=== PATIENT | female | born 1995 | race Two or more races ===

== ENCOUNTER 2018-12-15 05:55 | Inpatient (IN) ==
[2018-12-15] MEDS ORDERED: ONDANSETRON 4 MG/2 ML VIAL IV PRN (06:02)
[2018-12-15] MEDS ORDERED: BUTORPHANOL 2 MG/ML VIAL IV PRN (06:02)
[2018-12-15] MEDS: LACTATED RINGERS 1,000 ML IV SCH ×2 (06:20→10:12)
[2018-12-15 06:25] LABS: Basophils % 0.4 % (0.0-0.8); Eosinophils # 0.2 10*3/uL (0.0-0.87); Eosinophils % 2.6 % (0.00-10.9); Hematocrit 38.8 VOL% (35.7-47.0); Hemoglobin 12.3 GM/DL (12.0-16.0); Immature Granulocytes % 0.6 %; Immature Granulocytes Absolute 0.06 #; Lymphocytes # 1.2 10*3/uL (1.4-4.0); Mean Corpuscular HGB Conc 31.7 GM/DL (32-36); Mean Corpuscular Volume 83.1 FL (87-102); Mean Platelet Volume 11.5 FL (9.6-12.0); Monocytes % 5.3 % (1.7-12.7); Neutrophils % 78.1 % (38.7-73.9); Platelet Count 164 T/CUMM (130-400); Red Blood Count 4.67 MC/CUMM (3.8-5.5); Red Cell Distribution Width 15.3 % (9.3-17.3); White Blood Count 9.4 T/CUMM (4-12)
[2018-12-15 06:44] LABS: Alanine Aminotransferase 12 U/L (13-56); Albumin 2.6 G/DL (3.4-5.0); Alkaline Phosphatase 111 U/L (45-117); Aspartate Amino Transferase 11 U/L (0-37); Bilirubin,Total < 0.39 MG/DL (0.2-1.0); Blood Urea Nitrogen 4 MG/DL (7-18); Estimated Glom Filtration Rate 151 ML/MIN; Glucose 104 MG/DL (74-106); Osmolality,Calculated 275.4 MOS/KG (273-304); Total Protein 6.4 G/DL (6.4-8.3)
[2018-12-15] MEDS: OXYTOCIN/LR 20 UNIT/1,000 ML BAG IV SCH ×2 (07:13→20:05)
[2018-12-15] MEDS ORDERED: OXYTOCIN/LR 20 UNIT/1,000 ML BAG IV SCH (07:30)
[2018-12-15] MEDS ORDERED: CITRIC ACID/SODIUM CITRATE 30 ML UDCUP PO ONE (07:37)
[2018-12-15] MEDS ORDERED: PROMETHAZINE 25 MG/1 ML VIAL IM ONE (07:37)
[2018-12-15] MEDS ORDERED: ONDANSETRON 4 MG/2 ML VIAL IV ONE (07:37)
[2018-12-15] MEDS ORDERED: NALOXONE 0.4 MG/ML VIAL IV PRN (07:37)
[2018-12-15] MEDS ORDERED: FAMOTIDINE 20 MG/2 ML VIAL IV ONE (07:37)
[2018-12-15] MEDS ORDERED: hydrOXYzine HCL 25 MG/1 ML VIAL IM PRN (07:37)
[2018-12-15] MEDS ORDERED: ePHEDrine 50 MG/ML AMP IV PRN (07:37)
[2018-12-15] MEDS ORDERED: diphenhydrAMINE 50 MG/1 ML VIAL IV PRN ×2 (07:37)
[2018-12-15] MEDS ORDERED: fentaNYL 2 MCG/ROPIV 0.2% EPID 100 ML EPIDURAL SCH (08:00)
[2018-12-15 10:48] LABS: Amorphous Crystals,Urine Occasional /HPF (Few); Apearance,Urine CLEAR (Clear); Bilirubin,Urine Negative (Negative); Blood, Urine Negative (Negative); Glucose,Urine (UA) Negative (Negative); Ketones,Urine Negative (Negative); Mucus,Urine Occasional /LPF (Occasional); Nitrite,Urine Negative (Negative); Protein,Urine Negative; RBC,Urine 1 /HPF (0-4); Squamous Epithelial Cell,Urine Occasional /HPF (0-10); Urine Color Straw (Yellow); Urine Specific Gravity 1.009 (1.001-1.035); Urine Urobilinogen < 2.0 EU/DL (0.2-1.0)
[2018-12-15] MEDS ORDERED: CARBOPROST TROMETHAMINE 250 MCG/ML AMP IM ONE (17:03)
[2018-12-15] MEDS ORDERED: BUTORPHANOL 1 MG/ML VIAL ONE (17:03)
[2018-12-15] MEDS ORDERED: METHYLERGONOVINE 0.2 MG/1 ML AMP ONE (17:03)
[2018-12-15] MEDS ORDERED: miSOPROStoL 200 MCG TABLET ONE (17:03)
[2018-12-15] MEDS ORDERED: LIDOCAINE 1% 50 ML VIAL ONE (17:03)
[2018-12-15] MEDS: IBUPROFEN 800 MG TABLET PO PRN (19:32)
[2018-12-15] MEDS ORDERED: BENZOCAINE 20%/MENTHOL 0.5% SPRAY 56 GM CAN TOP PRN (20:35)
[2018-12-15] MEDS ORDERED: oxyCODONE/ACETAMINOPHEN 5-325 MG TABLET PO PRN ×2 (20:50)
[2018-12-15] MEDS ORDERED: oxyCODONE/ACETAMINOPHEN 5-325 MG TABLET ONE (20:55)
[2018-12-15] MEDS ORDERED: KETOROLAC 30 MG/1 ML VIAL IV PRN (22:55)
[2018-12-16 06:08] LABS: Basophils % 0.2 % (0.0-0.8); Hematocrit 27.2 VOL% (35.7-47.0); Hemoglobin 8.7 GM/DL (12.0-16.0); Immature Granulocytes % 0.9 %; Immature Granulocytes Absolute 0.16 #; Lymphocytes # 0.9 10*3/uL (1.4-4.0); Lymphocytes % 4.9 % (21.3-54.2); Mean Corpuscular Volume 82.9 FL (87-102); Mean Platelet Volume 11.5 FL (9.6-12.0); Monocytes % 5.3 % (1.7-12.7); Neutrophils % 88.7 % (38.7-73.9); Platelet Count 141 T/CUMM (130-400); Red Blood Count 3.28 MC/CUMM (3.8-5.5); Red Cell Distribution Width 14.9 % (9.3-17.3); White Blood Count 18.5 T/CUMM (4-12)
[2018-12-16 06:27] LABS: Band Neutrophils 87 % (0-10); Eosinophils 2 % (0-10); Lymphocytes 6 % (20-55); Total Cells Counted 100
[2018-12-16 06:28] LABS: Anisocytosis 1+; Hypochromasia 1+; Platelet Estimate Adequate; Polychromasia 1+
[2018-12-16 06:30] LABS: Amorphous Crystals,Urine Occasional /HPF (Few); Apearance,Urine CLEAR (Clear); Bilirubin,Urine Negative (Negative); Blood, Urine Small mg/dL (Negative); Glucose,Urine (UA) Negative (Negative); Ketones,Urine Negative (Negative); Mucus,Urine Occasional /LPF (Occasional); Nitrite,Urine Negative (Negative); Protein,Urine Negative; RBC,Urine 18 /HPF (0-4); Squamous Epithelial Cell,Urine Occasional /HPF (0-10); Urine Color Yellow (Yellow); Urine Specific Gravity 1.021 (1.001-1.035); Urine Urobilinogen < 2.0 EU/DL (0.2-1.0); WBC,Urine 6 /HPF (0-6)
[2018-12-16] MEDS: DOCUSATE SODIUM 100 MG CAPSULE PO SCH ×2 (09:48→20:44)
[2018-12-16] MEDS: IBUPROFEN 800 MG TABLET PO PRN (23:14)
[2018-12-17] MEDS: IBUPROFEN 800 MG TABLET PO PRN (08:41)
[2018-12-17] MEDS: DOCUSATE SODIUM 100 MG CAPSULE PO SCH (08:41)
[2018-12-17 11:19] VITALS: BP 102/57
== END 2018-12-17 14:00 | disposition home or self-care (01) | DRG 807 ==
LOC: N.LDOUT 05:55 → N.LD 05:58 → N.OB 20:45
PROVIDERS: ADMIT Obstetrics & Gynecology; ATTEND Obstetrics & Gynecology